=== PATIENT | male | born 1990 | race Caucasian/White ===

== ENCOUNTER 2019-07-21 19:43 | Emergency (ER) | payer BC ==
[2019-07-21 19:48] VITALS: BP 146/104
[2019-07-21] MEDS ORDERED: KETOROLAC TROMETHAMINE INJ/PF 30 MG/1 ML SDV IM ONE (20:14)
[2019-07-21] MEDS ORDERED: OXYCODONE-ACETAMINOPHEN 5-325 MG TABLET PO ONE (20:14)
--- NOTE | 2019-07-21 20:17 | ER Document Report ---
ED Medical Screen (RME) - General Chief Complaint: Hand Injury Stated Complaint: POSSIBLE STING RAY INJURY Time Seen by Provider: 07/21/19 20:11 Mode of Arrival: Ambulatory Information source: Patient Notes: 29-year-old male presented to ED for stingray injury to the left hand. He states that happened about a hour and 1/2 to 2 hours ago. He is allergic to eggs no other medications. Patient has a history of reflux and pericarditis and is on he is on Vyvanse. Patient is alert and oriented respirations regular and unlabored speaking in full sentence he is in a lot of pain in his left hand. He has been ordered Toradol and Percocet. He has already had 400 of ibuprofen so I gave him 30 of the Toradol. We have ordered an x-ray for the hand. I have greeted and performed a rapid initial assessment of this patient. A comprehensive ED assessment and evaluation of the patient, analysis of test results and completion of medical decision making process will be conducted by an additional ED providers. Physical Exam - Vital signs Vitals: Temp Pulse Resp BP Pulse Ox 98.2 F 65 18 146/104 H 100 07/21/19 19:46 07/21/19 19:46 07/21/19 19:46 07/21/19 19:46 07/21/19 19:46 Course - Vital Signs Vital signs: Temp Pulse Resp BP Pulse Ox 98.2 F 65 18 146/104 H 100 07/21/19 19:46 07/21/19 19:46 07/21/19 19:46 07/21/19 19:46 07/21/19 19:46
[2019-07-21] MEDS ORDERED: CEPHALEXIN 500 MG CAPSULE PO ONE (21:04)
[2019-07-21] MEDS ORDERED: DOXYCYCLINE HYCLATE 100 MG TABLET PO ONE (21:04)
--- NOTE | 2019-07-21 21:04 | ER Document Report ---
ED Hand/Wrist Injury - General Chief Complaint: Hand Injury Stated Complaint: POSSIBLE STING RAY INJURY Time Seen by Provider: 07/21/19 20:11 Mode of Arrival: Ambulatory - [facility] Notes: This is a 29-year-old gentleman who presents today with his stingray injury to his left hand. Patient was fishing when he got stung by stingray on the dorsum of his left hand. He noticed some swelling at the site. He denies any other injuries. Patient's tetanus status is up-to-date. He denies any fever or chills. Denies any chest pain. He denies any other complaints other than pain in his left hand. Past Medical History - General Information source: Patient - Social History Smoking Status: Never Smoker Frequency of alcohol use: Social Drug Abuse: None Family History: Reviewed & Not Pertinent Review of Systems - Review of Systems Cardiovascular: denies: Chest pain Respiratory: denies: Cough, Short of breath Gastrointestinal: denies: Abdominal pain, Nausea Musculoskeletal: Other - Left hand pain and swelling. -: Yes All other systems reviewed and negative Physical Exam - Vital signs Vitals: Temp Pulse Resp BP Pulse Ox 98.2 F 65 18 146/104 H 100 07/21/19 19:46 07/21/19 19:46 07/21/19 19:46 07/21/19 19:46 07/21/19 19:46 - General General appearance: Appears well, Alert - Respiratory Respiratory status: No respiratory distress Chest status: Nontender Breath sounds: Normal Chest palpation: Normal - Cardiovascular Rhythm: Regular Heart sounds: Normal auscultation Murmur: No - Abdominal Inspection: Normal Distension: No distension Bowel sounds: Normal Tenderness: Nontender Organomegaly: No organomegaly - Extremities General upper extremity: Tender Hand: Tender - There is swelling on the dorsum of the left hand. There is a puncture wound. It is not open or gaping. I do not feel any obvious foreign body. I do not see any foreign body. There is no ecchymosis. There is no warmth or erythema. Normal distal neurovascular exam of the left upper extremity. - Psychological Associated symptoms: Normal affect, Normal mood Course - Re-evaluation Re-evalutation: 07/21/19 21:03 Plan capacious consistent with stingray envenomation/injury of the left hand. There is no clinical signs of systemic envenomation. Patient's wound is been soaked in hot water. X-ray shows no obvious foreign body. Patient's care discussed with poison control. I spoke with [place]. He agrees with current management of immersing the hand in hot water for 90 minutes. Agrees with tetanus update if necessary. We discussed antibiotic prophylaxis. The literature is kind of equivocal. Consequently, we agreed we will add on the side of caution and cover for vibrio species with Doxy and Keflex as per some recommendations. I discussed plan with patient. I discussed pros and cons of antibiotic prophylaxis with patient. Given the fact that there is some recommendations for prophylaxis with Stingley injuries, given the swelling, I will cover for vibrio species. I will put him on Keflex and doxycycline as per recommendations and up-to-date. He understands. 07/21/19 21:50 Patient is doing well. He is stable for discharge. Follow-up discussed with patient and family. - Vital Signs Vital signs: Temp Pulse Resp BP Pulse Ox 98.2 F 65 18 146/104 H 100 07/21/19 19:46 07/21/19 19:46 07/21/19 19:46 07/21/19 19:46 07/21/19 19:46 Discharge - Discharge Clinical Impression: Contact with stingray as cause of accidental injury Condition: Good Disposition: HOME, SELF-CARE Instructions: Marine Puncture Envenomation ([facility]) Additional Instructions: Return if worsening swelling, fever, redness or any concerns. Prescriptions: Doxycycline Hyclate 100 mg PO BID #14 capsule Cephalexin Monohydrate [Keflex 500 mg Capsule] 500 mg PO TID 7 Days #21 capsule Oxycodone HCl/Acetaminophen [Percocet 5-325 mg Tablet] 1 tab PO Q6 #15 tab Referrals: [facility] [NO LOCAL MD] - Follow up as needed
--- NOTE | 2019-07-21 21:12 | RADIOLOGY REPORT (SQ) ---
EXAM DESCRIPTION: XR HAND 3 OR MORE VIEWS COMPLETED DATE/TME: 07/21/2019 20:15 CLINICAL HISTORY: 29 years ,Male stingray need to get anxious and more sting COMPARISON: None. TECHNIQUE: LEFT hand, Three view FINDINGS: No acute fractures or dislocations are identified. No osseous destructive lesions. No radiopaque foreign object noted. IMPRESSION: No acute fracture or dislocation is identified.
--- NOTE | 2019-07-22 08:48 | EKG REPORT ---
SEVERITY:- NORMAL ECG - SINUS RHYTHM : Confirmed by: Kelsey Santacruz MD 22-Jul-2019 08:47:47
== END 2019-07-21 22:21 | disposition home or self-care (01) ==
LOC: ER 19:43
DX: T63.511A Toxic effect of contact with stingray, accidental (unintentional), initial encounter (principal); S61.432A Puncture wound without foreign body of left hand, initial encounter; M79.642 Pain in left hand
CPT/HCPCS: 93005; 73130; 93010; J1885; 96372; 99283